=== PATIENT | male | born 1990 | race African-American/Black ===

== ENCOUNTER 2017-07-25 10:41 | Emergency (ER) | payer SELFPAY ==
[2017-07-25 11:14] LABS: POC GLUCOSE 122 mg/dL (70-99)
[2017-07-25 11:31] LABS: ADD MAN DIFF? NO
[2017-07-25] MEDS: IV NORMAL SALINE 1000ML BAG 1,000 ML IV ×2 (11:35→13:05)
[2017-07-25] MEDS: diphenhydrAMINE 50 MG/ML VIAL IVP ×2 (11:36→14:01)
[2017-07-25] MEDS: fentaNYL PF VIAL 100 MCG/2 ML VIAL IV (11:37)
[2017-07-25 11:40] LABS: ANION GAP 12 (6-14); BASO % 0 % (0-3); BLOOD UREA NITROGEN 15 mg/dL (8-26); BUN/CREATININE RATIO 11 (6-20); CALCIUM 9.8 mg/dL (8.5-10.1); CARBON DIOXIDE 30 mmol/L (21-32); CHLORIDE 92 mmol/L (98-107); CREATININE 1.4 mg/dL (0.7-1.3); EOS % 0 % (0-3); GFR 75.3; GLUCOSE 121 mg/dL (70-99); HEMATOCRIT 51.7 % (39.0-53.0); HEMOGLOBIN 17.5 g/dL (13.0-17.5); LYMPH # 2.5 x10^3/uL (1.0-4.8); LYMPH % 30 % (24-48); MEAN CORPUSCULAR HEMOGLOBIN 28 pg (25-35); MEAN CORPUSCULAR HGB CONC 34 g/dL (31-37); MEAN CORPUSCULAR VOLUME 84 fL (79-100); MONO % 12 % (0-9); NEUT # 4.8 x10^3uL (1.8-7.7); NEUT % 58 % (31-73); PLATELET COUNT 307 x10^3/uL (140-400); POTASSIUM 3.5 mmol/L (3.5-5.1); RED BLOOD COUNT 6.15 x10^6/uL (4.30-5.70); RED CELL DISTRIBUTION WIDTH 13.5 % (11.5-14.5); SODIUM 134 mmol/L (136-145); WHITE BLOOD COUNT 8.3 x10^3/uL (4.0-11.0)
[2017-07-25 11:46] LABS: ALBUMIN 4.2 g/dL (3.4-5.0); ALBUMIN/GLOBULIN RATIO 0.7 (1.0-1.7); ALK PHOS 69 U/L (46-116); ALT (SGPT) 25 U/L (16-63); AST (SGOT) 19 U/L (15-37); LIPASE 81 U/L (73-393); TOTAL BILIRUBIN 0.5 mg/dL (0.2-1.0); TOTAL PROTEIN 9.9 g/dL (6.4-8.2)
[2017-07-25 13:10] LABS: BILIRUBIN,URINE NEGATIVE (NEG); CLARITY,URINE CLEAR; COLOR,URINE YELLOW; GLUCOSE,URINE NEGATIVE (NEG); NITRITE,URINE NEGATIVE (NEG); PH,URINE 6.5; PROTEIN,URINE 100 mg/dL (NEG-TRACE)
[2017-07-25 13:25] LABS: BACTERIA,URINE 0 /HPF (0-FEW); RBC,URINE 0 /HPF (0-2)
[2017-07-25 13:38] LABS: BARBITURATES NEG (NEG); BENZODIAZEPINES POS (NEG); CANNABINOIDS POS (NEG); COCAINE NEG (NEG); METHADONE NEG (NEG); OPIATES NEG (NEG); PHENCYCLIDINE NEG (NEG)
[2017-07-25 13:44] LABS: AMPHETAMINE/METHAMPHETAMINE NEG (NEG); ETHANOL, URINE NEG (NEG)
== END 2017-07-25 15:09 | disposition home or self-care (01) ==
LOC: ER 10:41
DX: R11.2 Nausea with vomiting, unspecified (principal); R06.6 Hiccough; F41.9 Anxiety disorder, unspecified; F12.10 Cannabis abuse, uncomplicated; Z21 Asymptomatic human immunodeficiency virus [HIV] infection status
CPT/HCPCS: 36415; 51701; 80053; 80307; 81001; 82962; 83690; 85025; 93005; 96361; 96374; 96375; 96376; 99285-25; J1200; J2060; J3010; J7030